=== PATIENT | female | born 1955 | race Caucasian/White ===

== ENCOUNTER → 2019-06-03 08:10 | Outpatient (CLI) | payer OTHER, SELFPAY ==
[2019-06-03 08:05] VITALS: BMI 32.3
--- NOTE | 2019-06-03 08:13 | RAD_ITS ---
STUDY: X-RAY - LEFT HAND REASON FOR EXAM: Pain, palmar bulge. TECHNIQUE: 3 view(s) of the hand. COMPARISON: None. FINDINGS: There is osteopenia. Normal radiocarpal articulation. Normal distal radioulnar joint. Normal visualized carpal bones. Normal carpal articulations Normal carpometacarpal articulation of the thumb. Normal second through fifth carpometacarpal joints. Normal metacarpi. Normal metacarpophalangeal joint of the thumb. Normal interphalangeal joint of the thumb. Normal proximal and distal phalanges of the thumb. Normal metacarpophalangeal joints of the second through fifth fingers. There is joint space narrowing of the proximal and distal interphalangeal joints of the second through fifth fingers. Normal phalanges of the second through fifth fingers. The soft tissue structures are unremarkable. RAD/Hand Min 3 Views IMPRESSION: Arthrosis of the interphalangeal joints. Osteopenia. Electronically Signed: Mauricio Newman MD at 8:38 EDT Tel , Service support ,
== END ==
PROVIDERS: Family Provider Internal Medicine; PCP Internal Medicine; Referring Provider Orthopaedic Surgery; Visit Provider Orthopaedic Surgery
DX: M79.642 Pain in left hand (principal)
CPT/HCPCS: 73130

== ENCOUNTER → 2019-08-09 14:40 | Outpatient (CLI) | payer OTHER, SELFPAY ==
[2019-08-09 14:36] VITALS: BMI 32.3
--- NOTE | 2019-08-09 14:41 | RAD_ITS ---
STUDY: X-RAY - LEFT KNEE REASON FOR EXAM: Pain for 2 weeks, injury. TECHNIQUE: 4 view(s) of the knee. COMPARISON: None. FINDINGS: Normal visualized distal femur. Normal visualized proximal tibia and fibula. Normal proximal tibiofibular articulation. There is mild joint space narrowing of the medial femorotibial compartment. Normal lateral femorotibial compartment. Normal patellofemoral articulation. There is a small enthesophyte at the superior pole of the patella. RAD/Knee 4 or More Views IMPRESSION: Mild arthrosis of the medial femorotibial compartment. Electronically Signed: Mauricio Newman MD at 15:11 EST Tel , Service support ,
== END ==
PROVIDERS: Family Provider Internal Medicine; PCP Internal Medicine; Referring Provider Orthopaedic Surgery; Visit Provider Orthopaedic Surgery
DX: M25.562 Pain in left knee (principal)
CPT/HCPCS: 73564

== ENCOUNTER → 2024-05-06 | Outpatient (CLI) | payer MEDICARE, OTHER, SELFPAY ==
--- NOTE | 2024-05-06 12:32 | RAD_ITS ---
EXAM: XR PELVIS, 1 OR 2 VIEWS CLINICAL INDICATION: PELVIC PAIN TECHNIQUE: Frontal view of the pelvis. COMPARISON: No relevant prior studies available. FINDINGS: BONES/JOINTS: Mild hypertrophic calcific changes at the anterior-superior iliac bone margins, presumably within tendon insertions. No displaced fracture. No destructive or sclerotic lesions. Note that overlapping bowel shadows may however obscure fine detail. Sacroiliac joints are unremarkable. No widening of the pubic symphysis. The articular structures are unremarkable. SOFT TISSUES: Unremarkable. No soft tissue swelling or gas. OTHER FINDINGS: Mild gas in rectum. Mild stool in the right and left colon. RAD/Pelvis 1 or 2 Views IMPRESSION: No acute findings in the pelvis. Electronically Signed: Fariha Bustos MD at 22:40 EDT ,
== END | disposition home or self-care (01) ==
LOC: RAD 12:27
PROVIDERS: PCP Internal Medicine; Referring Provider Anesthesiology; Visit Provider Anesthesiology
DX: R10.2 Pelvic and perineal pain (principal)
CPT/HCPCS: 72170

== ENCOUNTER → 2024-05-23 | Outpatient (CLI) | payer MEDICARE, OTHER, SELFPAY ==
--- NOTE | 2024-05-23 12:30 | MRI_ITS ---
STUDY: MRI LUMBAR SPINE WITHOUT CONTRAST REASON FOR EXAM: Female, 69 years old. SPONDYLOSIS, LT HIP PAIN TECHNIQUE: Standardized fat and water weighted pulse sequences were obtained in the sagittal and axial planes. COMPARISON: None FINDINGS: T10-T11: (Sagittal only). Normal included posterior 2003. Normal T11 superior endplate. Normal disc height, hydration and morphology. No ventral extradural defect. Normal central canal and the partially included bilateral intervertebral neuroforamina. T11-T12 and T12-L1: (Sagittal only). Normal endplates. Normal disc height, hydration and morphology. No ventral extradural defects. Normal central canal and bilateral intervertebral neural foramina. Normal lumbar lordosis. There is no substantial scoliosis. Normal conus medullaris that terminates at the upper L1 vertebral body level. L1-2: Normal endplates. Normal disc height, hydration and morphology. Normal bilateral facet joints. Normal central canal and bilateral lateral recesses. Normal bilateral intervertebral neural foramina. L2-3: Normal endplates. Normal disc height, hydration and morphology. Normal bilateral facet joints. Normal central canal and bilateral lateral recesses. Normal bilateral intervertebral neural foramina. L3-4: Normal endplates. Minimal disc space height narrowing. Normal disc morphology. Mild bilateral degenerative facet arthropathy. Mild posterior ligamenta flava hypertrophy. Mild dorsal epidural lipomatosis. Normal central canal and bilateral lateral recesses. Normal bilateral intervertebral neural foramina. L4-5: Normal endplates. Minimal disc space height narrowing. Normal disc hydration and morphology. Mild asymmetric degenerative facet arthropathy, right greater than left. Small fluid inside the right facet joint and small fluid in the right medial synovial space. Posterior ligamenta flava hypertrophy account for the dorsolateral extradural defects. Moderately pronounced central canal stenosis with a transverse canal diameter 5 mm. Normal bilateral lateral recesses. Normal bilateral intervertebral neuroforamina. L5-S1: Normal endplates. Normal disc height, hydration and morphology. Mild bilateral degenerative facet arthropathy. Normal central canal and bilateral lateral recesses. Normal bilateral intervertebral neural foramina. Normal visualized sacral ala. Normal visualized paraspinous soft tissue structures. MRI/Spine Lumbar (Routine) IMPRESSION: 1. Moderately pronounced central canal stenosis at L4-L5 disc space level due to posterior ligamenta flava hypertrophy causing [id number] compression of the thecal sac and small right medial synovial fluid. The transverse canal diameter is 5 mm. 2. No MRI evidence of lumbar extruded disc fragment or lumbar disc protrusion. 3. No MRI evidence of recent or remote compression fractures of the lumbar spine. Electronically Signed: Jose Perez MD at 10:02 EDT ,
--- NOTE | 2024-05-23 13:10 | MRI_ITS ---
EXAM: MR PELVIS WITHOUT INTRAVENOUS CONTRAST CLINICAL INDICATION: LEFT HIP PAIN TECHNIQUE: Multiplanar and multisequence MR images of the pelvis without intravenous contrast. COMPARISON: X-ray of the pelvis 05/06/2024. FINDINGS: BOWEL: Scattered diverticula without diverticulitis. APPENDIX: No evidence of acute appendicitis. INTRAPERITONEAL SPACE: Unremarkable. No ascites or other fluid collection. BLADDER: Unremarkable. OVARIES: Ovaries not visualized. UTERUS/CERVIX: Hysterectomy. BONES/JOINTS: Unremarkable. No suspicious lytic or blastic abnormality. Normal hips. SOFT TISSUES: Unremarkable. No pelvic wall hernia. LYMPH NODES: Unremarkable. No enlarged lymph nodes. MRI/Pelvis (Routine) IMPRESSION: 1. Normal hips. 2. No acute pelvic abnormality. 3. Scattered diverticula without diverticulitis. 4. Hysterectomy. Electronically Signed: Prince Obrien MD at 18:05 EDT ,
== END | disposition home or self-care (01) ==
LOC: MRI 12:26
PROVIDERS: PCP Internal Medicine; Referring Provider Anesthesiology; Visit Provider Anesthesiology
DX: M47.816 Spondylosis without myelopathy or radiculopathy, lumbar region (principal); M25.552 Pain in left hip
CPT/HCPCS: 72148; 72195

== ENCOUNTER → 2024-06-10 | Outpatient (CLI) | payer MEDICARE, OTHER, SELFPAY ==
--- NOTE | 2024-06-10 13:05 | RAD_ITS ---
INDICATION: WRIST PAIN EXAMINATION/TECHNIQUE: X-RAY - RIGHT XR Wrist Min 3 Views 3 VIEWS COMPARISON: FINDINGS: SOFT TISSUES: No soft tissue swelling or gas. No radiopaque foreign body. BONES/JOINTS: No acute fracture or subluxation.. Normal alignment. Preservation of the joint space.. No sclerotic or destructive changes observed. RAD/Wrist min 3 Views IMPRESSION: No acute bony injury. Electronically Signed: Benton Finley DO at 14:20 EDT ,
== END | disposition home or self-care (01) ==
LOC: RAD 12:47
PROVIDERS: PCP Internal Medicine; Referring Provider Anesthesiology; Visit Provider Anesthesiology
DX: M25.539 Pain in unspecified wrist (principal)
CPT/HCPCS: 73110